=== PATIENT | female | born 1995 | race Caucasian/White ===

== ENCOUNTER 2025-08-15 18:38 | Emergency (ER) | payer OTHER, SELFPAY ==
[2025-08-15 18:40] VITALS: BP 128/85
[2025-08-15 18:56] LABS: Hematocrit 37.4 % (37.0-47.0); Hemoglobin 11.6 g/dL (12.0-16.0); Mean Corp Hgb Conc. 31.0 g/dL (33.0-37.0); Mean Corpuscular Volume 91.2 fL (81.0-99.0); Nucleated Red Blood Cells % 0 %; Platelet Count 198 10^3/uL (130-400); Red Cell Dist. Width 13.9 % (11.5-14.5)
[2025-08-15 19:04] LABS: HCG, Serum Qualitative Screen Negative
[2025-08-15 19:11] LABS: ALT (SGPT) 15 U/L (0-35); AST (SGOT) 15 U/L (14-36); Albumin 4.1 g/dl (3.5-5.0); Alkaline Phosphatase 60 U/L (38-126); Blood Urea Nitrogen 17 mg/dl (7-17); Calcium 9.1 mg/dl (8.4-10.2); Carbon Dioxide 24 mmol/L (22-30); Chloride 109 mmol/L (98-107); Glucose 86 mg/dl (70-99); Potassium 4.1 mmol/L (3.5-5.1); Sodium 136 mmol/L (135-145); Total Protein 6.6 g/dl (6.3-8.2); eGFR > 60.00
[2025-08-15 21:40] VITALS: BP 111/78
--- NOTE | 2025-08-15 21:54 | ED.GENMED ---
History of Present Illness
General
Chief Complaint: Visual Problem
Source: patient and family
Exam Limitations: none
Time Seen by Provider: 08/15/25 21:45
Nursing documentation reviewed up to this point in time: agreed with
History of Present Illness
History of Present Illness:
29-year-old female presents to the ER for evaluation of blurry vision and headache. Patient reports onset of symptoms when she woke up this morning and they have been constant all day. She reports diffuse headache described as a pressure
sensation. She reports associated mild blurry vision and photosensitivity. She says she will occasionally see floaters. She has not had any nausea or vomiting. She denies any neck pain or stiffness. Denies any fevers or chills. She denies any
vision loss. No focal weakness or numbness although she does report some mild paresthesias occasionally in her extremities. She initially was seen by eye doctor earlier today and says that she had full examination including retinal exam and eye
pressures and was told that her eye exam is normal. She went to her primary doctor and was ultimately referred to the ER to be assessed.
Review of Systems
Review of Systems
All Other Systems: ROS reviewed and negative except as documented in HPI and ROS
Constitutional: Denies fever
EENT: Reports other (Blurry vision)
Respiratory: Denies trouble breathing
Cardiac: Denies chest pain
ABD/GI: Denies abdominal pain, nausea or vomiting
Musculoskeletal: Denies neck pain or back pain
Neurological: Reports headache; Denies dizzy, weakness or numbness
Phy Exam
Physical Exam
Physical Exam:
General: Awake, alert, oriented x3; nontoxic-appearing, sitting in dark room with sunglasses on
Head: Normocephalic, atraumatic
Eyes: Conjunctiva normal, EOMI, pupils equal round reactive to light bilaterally
Throat: Airway intact, handling secretions
Neck: Trachea midline, supple without meningismus
Lungs: Clear to auscultation bilaterally, no wheezing, rales, rhonchi
Heart: Regular rate and rhythm, no murmurs, gallops, or rubs
Neuro: Cranial nerves intact, speech fluid, no limb ataxia, motor and sensory intact in all extremities
Skin: Warm and dry with no appreciable rash
Extremities: Warm and well-perfused with no edema
Scores
Heart Failure Risk
Heart Failure Risk Score: Not Applicable
Heart Score for Chest Pain Patients
STEMI patient?: Not applicable
Withdrawal Assessment of Alcohol
Withdrawal Assessment Completed?: Not applicable
Course
Orders/Labs/Results
Orders:
Orders
08/15/25 18:44
Test Result ONCE
08/15/25 18:46
CT Head W/o Iv Contrast Urgent
Comment:
Reason For Exam: blurry vision/montalvo
08/15/25 18:47
Complete Blood Count/With Diff Urgent
Comprehensive Metabolic Panel Urgent
HCG, Serum Qualitative Screen Urgent
Comment: Notify provider if positive test present
08/15/25 21:53
0.9% Sodium Chloride 1000 ml [Nss] 1,000 ml IV BOLUS
Diphenhydramine [Benadryl] 25 mg IV NOW STA
Ketorolac [Toradol] 15 mg IV NOW STA
Magnesium Sulfate 2 Gram/50 ml [Magnesium Sulfate] 2 gram in 50 ml IV NOW
Metoclopramide [Reglan] 10 mg IV NOW STA
08/15/25 21:59
Visual Acuity- Treatment ONCE
Abnormal Lab Results
08/15/25
18:47
RBC 4.10 L 10^6/uL
(4.20-5.40)
Hgb 11.6 L g/dL
(12.0-16.0)
MCHC 31.0 L g/dL
(33.0-37.0)
MPV 12.0 H fL
(7.4-10.4)
Chloride 109 H mmol/L
(98-107)
08/15/25 18:47
08/15/25 18:47
Vital Signs
Initial and Last Documented VS:
Initial Vital Signs
Temp Pulse Resp BP Pulse Ox
36.9 C 82 20 128/85 100
08/15/25 18:40 08/15/25 18:40 08/15/25 18:40 08/15/25 18:40 08/15/25 18:40
Last Documented Vital Signs
Temp Pulse Resp BP Pulse Ox
36.9 C 70 18 105/84 98
08/15/25 18:40 08/15/25 23:07 08/15/25 21:40 08/15/25 23:03 08/15/25 23:07
MDM/Problems Addressed
Differential Diagnosis Includes:
Tension headache, migraine headache, brain mass, brain bleed; no fever, meningeal signs to suggest meningitis; this is not a thunderclap headache and symptoms are relatively mild and do not strongly and subarachnoid hemorrhage; patient already had
full eye exam ruling out glaucoma
MDM/Problems Addressed:
29-year-old female presents for evaluation of headache, blurry vision with floaters and photosensitivity all day today. Vitals and exam as above. She had eye exam today by eye doctor which was unremarkable and was referred to her primary doctor
who sent patient to the ER. Her labs in triage showed marginal anemia unlikely of acute clinical significance but otherwise normal. She had a CT head which showed no acute abnormalities. Overall suspect that this is a migraine headache. Will
treat symptomatically and reassess.
Symptoms improved with ER treatment. Stable for discharge follow-up with PCP as an outpatient. All questions answered.
*Radiology
Radiology exam reviewed: radiology read reviewed
*Pulse Oximetry
SaO2: 99
Oxygen Mode of Delivery: Room air
Patient hypoxic: no (99%)
*Critical Care Note
Total Time (30-74mins, 75-104mins- exclusive of procedures): Not Applicable
Data Reviewed
Review of Other/Old Records Reveals: Labs and Records
Source: patient, records and family
ED Attending Note
-
Portions of this chart may have been created with voice recognition software.� Occasional wrong word or��sound alike� substitutions may have occurred due to the inherent limitations of voice recognition software.
Discharge Plan
Departure
Patient Disposition: Home (Routine Discharge)
Date of Disposition: 08/15/25
Time of Disposition: 23:48
Patient with high blood pressure during this ER visit?: No
Discharge Problem:
Migraine
Instructions: Migraines (DC)
Prescriptions:
No Action
fluticasone propionate 16 GRAM spray,suspension
1 spray intranasal DAILY Qty: 1 0RF
amoxicillin-pot clavulanate 875 MG/125 MG tablet
1 tab PO BID Qty: 20 0RF
thhzzean-ifhzzbmok-TE 10 ML drops,suspension
3 - 4 drp otic (ear) DAILY Qty: 1 0RF
Referrals:
Navin Ann MD [Family Provider, Family Practice] - Call in 1-3 days for appt
Activity Restrictions/Additional Instructions:
Thank you for visiting the Emergency Department at [facility].
1. Please schedule a follow up appointment as directed. Call first thing tomorrow morning to make an appointment.
2. If indicated, please take your medications as instructed and indicated on discharge paperwork.
3. If any of your symptoms do not improve, or persist, or become more severe within 6-12 hours, please return to the emergency department for further care.
4. Please return to the emergency department if you develop a headache, neck pain/stiffness, fever greater than 100.4F, chest pain, shortness of breath, persistent nausea, vomiting, slurred speech, difficulty walking, numbness/tingling, weakness,
signs of infection or any other symptoms that are worrisome to you.
Please call [phone] if you have any questions.
Interventions
Interventions:
*Risk Screen - Suicide Last Done: 08/15/25 18:40
*General Assessment Last Done: 08/15/25 18:40
*Neglect/Abuse Screening Last Done: 08/15/25 18:40
*ED- Fall Risk Assessment Last Done: 08/15/25 20:07
*ED COVID-19 Vaccine History Last Done: 08/15/25 20:07
*ED Influenza Vaccine History Last Done: 08/15/25 20:07
ED- Neurological Assessment Last Done: 08/15/25 22:59
ED-EENT Assessment Last Done: 08/15/25 23:00
ED Swallowing Screen Last Done: 08/15/25 23:06
Discharge Date and Time
Print Language: TELUGU
[2025-08-15] MEDS: MAGNESIUM SULFATE 50 IV (22:33)
[2025-08-15] MEDS: BENADRYL 25 MG IV (22:33)
[2025-08-15] MEDS: NSS 1000 IV (22:34)
[2025-08-15] MEDS: REGLAN 10 MG IV (22:35)
[2025-08-15] MEDS: TORADOL 15 MG IV (22:35)
[2025-08-15 23:03] VITALS: BP 105/84
== END 2025-08-16 00:13 | disposition home or self-care (01) ==
LOC: EMR 18:38
PROVIDERS: Emergency Medicine; EMERGENCY PHYSICIAN Emergency Medicine; FAMILY PHYSICIAN Family Medicine
DX: G43.909 Migraine, unspecified, not intractable, without status migrainosus (principal)
CPT/HCPCS: 99284; 96374; 96375 ×3; 96361; 70450; 80053; 84703; 85025